=== PATIENT | male | born 1995 | race Caucasian/White ===

== ENCOUNTER 2017-01-06 17:36 | Emergency (ER) | payer OTHER ==
[~2017-01-06] VITALS: Ht 180.3 cm; Wt 89.1 kg
[2017-01-06 20:02] VITALS: BP 125/85
[2017-01-06] MEDS ORDERED: KEFLEX500 MG PO (20:27)
[2017-01-06] MEDS ORDERED: NORCO 5/3251 TABLET PO (20:27)
== END 2017-01-06 20:47 | disposition home or self-care (01) ==
LOC: EME 17:36
DX: S56.922A Laceration of unspecified muscles, fascia and tendons at forearm level, left arm, initial encounter (principal); S61.012A Laceration without foreign body of left thumb without damage to nail, initial encounter; W01.110A Fall on same level from slipping, tripping and stumbling with subsequent striking against sharp glass, initial encounter; Z72.0 Tobacco use
CPT/HCPCS: 73090; 99281; 99285; J2060; J2270

== ENCOUNTER 2017-07-22 02:16 | Emergency (ER) | payer SELFPAY ==
[~2017-07-22] VITALS: Ht 182.9 cm; Wt 89.5 kg
[~2017-07-22 02:16] MED LIST: KEFLEX500 MG PO; NORCO 5/3251 TABLET PO
[2017-07-22 05:23] LABS: HEMATOCRIT 43.8 % (38.0-50.0); HEMOGLOBIN 15.8 G/DL (12.5-16.6); MCHC 36.1 G/DL (30.0-36.0); MCV 86.1 FL (86-99); PLATELET COUNT 227 K/uL (156-360); RBC DIS.WIDTH-CV 12.1 % (11.8-14.6); RBC DIS.WIDTH-SD 38.4 % (39-53); RED BLOOD COUNT 5.09 M/uL (4.00-5.50); WHITE BLOOD COUNT 11.4 K/uL (4.1-10.2)
[2017-07-22 05:29] LABS: ALBUMIN 5.1 g/dL (3.2-4.8); CHLORIDE 108 mEq/L (99-109); POTASSIUM 4.1 mEq/L (3.7-5.4)
[2017-07-22 05:30] LABS: SODIUM 141 mEq/L (136-147)
[2017-07-22 05:32] LABS: GLUCOSE 92 mg/dL (70-99)
[2017-07-22 05:34] LABS: TOTAL BILIRUBIN 0.6 mg/dL (0.0-1.0)
[2017-07-22 05:35] LABS: ALKALINE PHOSPHATASE 72 IU/L (3-129); CREATININE 0.9 mg/dL (0.6-1.3); GFR ESTIMATE (CALCULATED) > 59 mL/min/ (58.99-99999)
[2017-07-22 05:37] LABS: AST (GOT) 19 IU/L (2-34); UREA NITROGEN (BUN) 14 mg/dL (9-23)
[2017-07-22 05:38] LABS: ALT (GPT) 30 IU/L (3-49)
[2017-07-22 06:23] VITALS: BP 142/85
== END 2017-07-22 06:24 | disposition home or self-care (01) ==
LOC: EME 02:16
PROVIDERS: Physician Assistant
PROC: 2W3DX1Z Immobilization of Left Lower Arm using Splint (ICD-10-PCS; principal; 2017-07-22)
DX: S62.397B Other fracture of fifth metacarpal bone, left hand, initial encounter for open fracture (principal); W22.09XA Striking against other stationary object, initial encounter
CPT/HCPCS: 73130; 80053; 85027; 99281; 99285; J0690; J2270; J2405; J7030